=== PATIENT | female | born 1955 | race Caucasian/White ===

== ENCOUNTER 2017-11-26 20:40 | Emergency (ER) | payer SELFPAY ==
[~2017-11-26] VITALS: Ht 170.2 cm; Wt 57.7 kg
[2017-11-27] MEDS ORDERED: ORPHENADRINE100 MG PO (01:59)
[2017-11-27] MEDS ORDERED: MOTRIN400 MG PO (01:59)
[2017-11-27 02:28] VITALS: BP 128/84
== END 2017-11-27 02:28 | disposition home or self-care (01) | DRG 93 ==
LOC: ED 20:40
DX: G89.29 Other chronic pain (principal); M54.2 Cervicalgia; W19.XXXA Unspecified fall, initial encounter